=== PATIENT | male | born 1970 | race Caucasian/White ===

== ENCOUNTER → 2018-04-28 | Outpatient (CLI) | payer BC ==
[2015-04-29 11:01] VITALS: BP 138/85
[~2018-04-28] MED LIST: ALPR0.5T PO; ASPI-630 PO; ATOR40TA PO; CARI350T14 PO; CELE200C PO; LOSA-73 PO; MULT-246 PO; OMEG500C3 PO; SERT50TA PO
--- NOTE | 2018-04-28 12:15 | CARD ---
MR#: [id number] Date of Study: 04/28/2018 Ordering Physician: MEHDI LOZANO, Referring Physician: MEHDI LOZANO, Tech: Vonnie Lacy [facility] APPROVED REPORT EXAM: Two-dimensional and M-mode echocardiogram with Doppler and color Doppler. Other Information Quality : Good INDICATION Abnormal ECG 2D DIMENSIONS RVDd3.6 (2.9-3.5cm)Left Atrium(2D)4.4 (1.6-4.0cm) IVSd1.0 (0.7-1.1cm)Aortic Root(2D)3.0 (2.0-3.7cm) LVDd5.1 (3.9-5.9cm)LVOT Diameter2.4 (1.8-2.4cm) PWd1.0 (0.7-1.1cm)LVDs3.4 (2.5-4.0cm) FS (%) 32.7 %SV73.8 ml LVEF(%)60.8 (>50%) Aortic Valve AoV Peak Evangelist.131.4cm/sAoV VTI24.6cm AO Peak GR.6.9mmHgLVOT Peak Evangelist.124.3cm/s AO Mean GR.4mmHgAVA (VMAX)4.38cm2 CORNELIUS (VTI)4.50cm2 Mitral Valve MV E Dvspedfa227.0cm/sMV DECEL VUCZ519vq MV A Uclykvsf78.2cm/sE/A Ratio1.9 Tricuspid Valve TR P. Tdtdciek223vd/sRAP VEJUYEGD0gfUl TR Peak Gr.59slFnKTHB03bhGa Pulmonary Vein S1 Doqfyjqw17.9cm/sD2 Fulptbjl19.5cm/s LEFT VENTRICLE The left ventricle is normal size. There is normal left ventricular wall thickness. The left ventricu lar systolic function is normal and the ejection fraction is within normal range. The Ejection Fracti on is 55-60%. There is normal LV segmental wall motion. Septal motion suggestive of conduction defect . The left ventricular diastolic function and filling is normal for age. RIGHT VENTRICLE The right ventricle is normal size. The right ventricular systolic function is normal. ATRIA The left atrium size is normal. The right atrium size is normal. The interatrial septum is intact wit h no evidence for an atrial septal defect or patent foramen ovale as noted on 2-D or Doppler imaging. AORTIC VALVE The aortic valve is not well visualized but appears to be functioning normally by Doppler interrogati on. Doppler and Color Flow revealed no significant aortic regurgitation. There is no significant aort ic valvular stenosis. MITRAL VALVE The mitral valve is normal in structure and function. There is no evidence of mitral valve prolapse. There is no mitral valve stenosis. Doppler and Color-flow revealed trace mitral regurgitation. TRICUSPID VALVE The tricuspid valve is normal in structure and function. Doppler and Color Flow revealed physiologica l tricuspid regurgitation. The PA pressure was estimated at 23 mmHg. There is no tricuspid valve sten osis. PULMONIC VALVE The pulmonic valve is not well visualized. Doppler and Color Flow revealed trace pulmonic valvular re gurgitation. There is no pulmonic valvular stenosis. GREAT VESSELS The aortic root is normal in size. The ascending aorta is normal in size. The IVC is normal in size a nd collapses >50% with inspiration. PERICARDIAL EFFUSION There is no evidence of significant pericardial effusion. Critical Notification Critical Value: No <Conclusion> The left ventricular systolic function is normal and the ejection fraction is within normal range. Th e Ejection Fraction is 55-60%. There is normal LV segmental wall motion. Septal motion suggestive of conduction defect. Signed by : Harlan Goldberg, Electronically Approved : 04/28/2018 12:13:41
== END | disposition home or self-care (01) ==
LOC: ECHO 11:15
PROVIDERS: ATTEND Family Medicine
DX: I36.1 Nonrheumatic tricuspid (valve) insufficiency (principal)
CPT/HCPCS: 93306